=== PATIENT | male | born 1950 | race Caucasian/White ===

== ENCOUNTER → 2023-06-08 07:51 | Outpatient (REF) | payer MEDICARE, SELFPAY | LOC: RSP 07:51 | PROVIDERS: ATTENDING PHYSICIAN Family Medicine | DX: J42 Unspecified chronic bronchitis (principal); J43.2 Centrilobular emphysema; R94.2 Abnormal results of pulmonary function studies; F17.210 Nicotine dependence, cigarettes, uncomplicated | CPT/HCPCS: 94727; 94729; 88738; 94060 ==

== ENCOUNTER → 2024-03-04 11:31 | Outpatient (REF) | payer MEDICARE, SELFPAY | LOC: HWRAD 11:31 | PROVIDERS: ATTENDING PHYSICIAN Surgery Vascular Surgery; FAMILY PHYSICIAN Family Medicine | DX: I71.20 Thoracic aortic aneurysm, without rupture, unspecified (principal) | CPT/HCPCS: 71250; 74176 ==

== ENCOUNTER → 2024-04-05 14:51 | Outpatient (REF) | payer MEDICARE, SELFPAY | LOC: RAD 14:51 | PROVIDERS: ATTENDING PHYSICIAN Surgery Vascular Surgery; FAMILY PHYSICIAN Family Medicine | DX: I65.22 Occlusion and stenosis of left carotid artery (principal) | CPT/HCPCS: 93880 ==

== ENCOUNTER → 2024-04-24 13:21 | Outpatient (REF) | payer MEDICARE, SELFPAY | LOC: REG 13:21 | PROVIDERS: ATTENDING PHYSICIAN Internal Medicine Critical Care Medicine; FAMILY PHYSICIAN Family Medicine | DX: J41.8 Mixed simple and mucopurulent chronic bronchitis (principal); R91.1 Solitary pulmonary nodule | CPT/HCPCS: 71046; 87070; 87071; 87186; 87205 ==

== ENCOUNTER → 2024-05-31 12:57 | Outpatient (REF) | payer MEDICARE, SELFPAY | LOC: HWRAD 12:57 | PROVIDERS: ATTENDING PHYSICIAN Internal Medicine Critical Care Medicine; FAMILY PHYSICIAN Family Medicine | DX: R91.1 Solitary pulmonary nodule (principal) | CPT/HCPCS: 71250 ==

== ENCOUNTER → 2024-07-19 14:55 | Outpatient (REF) | payer MEDICARE, SELFPAY | LOC: RCS 14:55 | PROVIDERS: ATTENDING PHYSICIAN Internal Medicine Cardiovascular Disease; FAMILY PHYSICIAN Family Medicine | DX: Z86.73 Personal history of transient ischemic attack (TIA), and cerebral infarction without residual deficits (principal) | CPT/HCPCS: 93306 ==

== ENCOUNTER → 2024-09-05 10:45 | Outpatient (REF) | payer MEDICARE, SELFPAY | LOC: RAD 10:45 | PROVIDERS: ATTENDING PHYSICIAN Family Medicine | DX: R05.1 Acute cough (principal) | CPT/HCPCS: 71046 ==

== ENCOUNTER → 2024-10-01 12:44 | Outpatient (REF) | payer MEDICARE, SELFPAY | LOC: HWRAD 12:44 | PROVIDERS: ATTENDING PHYSICIAN Internal Medicine Critical Care Medicine; FAMILY PHYSICIAN Family Medicine | DX: R91.1 Solitary pulmonary nodule (principal) | CPT/HCPCS: 71250 ==

== ENCOUNTER → 2024-11-04 13:08 | Outpatient (REF) | payer MEDICARE, SELFPAY | LOC: RAD 13:08 | PROVIDERS: ATTENDING PHYSICIAN Surgery Vascular Surgery; FAMILY PHYSICIAN Family Medicine | DX: I71.20 Thoracic aortic aneurysm, without rupture, unspecified (principal) | CPT/HCPCS: 93880 ==